=== PATIENT | female | born 1930 | race Caucasian/White ===

== ENCOUNTER → 2016-08-10 | Outpatient (CLI) | payer MEDICARE, OTHER ==
--- NOTE | 2016-08-11 11:39 | RAD ---
Three view right knee. Indication: KNEE PAIN Comparison: None Impression: Mild to moderate tricompartment joint space narrowing, most pronounced at the medial compartment and patellofemoral compartment. Tiny tricompartmental joint line osteophytes. No acute fracture. Minimal suprapatellar joint fluid suspected. Mild lateral patellar subluxation. Electronically signed by: Jadon Florian MD 08/11/2016 11:37
--- NOTE | 2016-08-11 11:40 | RAD ---
Single frontal view pelvis. Indication: HIP PAIN Comparison: None Impression: Left total hip arthroplasty without evidence of periprosthetic fracture. Mild right hip osteoarthritis. 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 Osteopenia. If this is a new finding, DEXA scan recommended as well as evaluation for possible osteoporosis treatment. Electronically signed by: Jadon Florian MD 08/11/2016 11:38
== END | disposition home or self-care (01) ==
LOC: RAD 09:12
PROVIDERS: ATTEND Orthopaedic Surgery
DX: M25.561 Pain in right knee (principal); M25.551 Pain in right hip